=== PATIENT | female | born 1970 | race Asian ===

== ENCOUNTER 2018-06-16 10:03 | Emergency (ER) | payer OTHER ==
[~2018-06-16] VITALS: Ht 162.6 cm; Wt 73.0 kg
[2018-06-16] MEDS ORDERED: KETOROLAC 60MG/2ML VIAL IM ONE (14:00)
[2018-06-16] MEDS ORDERED: OXYCODONE HCL/ACETAMINOPHEN 5/325MG TABLET PO ONE (14:00)
[2018-06-16 14:07] LABS: EOSINOPHILS % 1.4 % (0.0-5.0); HEMATOCRIT. 49.3 % (36.0-48.0); HEMOGLOBIN. 16.5 g/dL (12.0-16.0); MEAN CORPUSCULAR HEMOGLOBIN 29.3 pg (28.0-32.0); MEAN CORPUSCULAR VOLUME 87.5 fL (81.0-99.0); MEAN PLATELET VOLUME 9.9 fl (7.4-10.4); MONOCYTES % 7.1 % (2.0-8.0); NEUTROPHILS % 66.5 % (40.0-76.0); PLATELET 273 x1000/uL (130-400); RED BLOOD CELL COUNT 5.63 mill/uL (4.2-5.4); RED CELL DISTRIBUTION WIDTH 13.5 % (11.6-14.6)
[2018-06-16 14:14] LABS: CHLORIDE 101 mEq/L (98-107)
[2018-06-16 14:44] VITALS: BP 128/71
== END 2018-06-16 15:15 | disposition home or self-care (01) ==
LOC: ER 10:03
DX: M54.30 Sciatica, unspecified side (principal)
CPT/HCPCS: 36415; 72148; 80053; 83036; 85025; 96372; 99285; J1885